=== PATIENT | male | born 2000 | race Caucasian/White ===

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

== ENCOUNTER 2021-09-30 17:49 | Emergency (ER) | payer OTHER ==
[~2021-09-30] VITALS: Ht 172.7 cm; Wt 70.0 kg
[~2021-09-30 17:49] MED LIST: KEFLEX500 MG PO
[2021-09-30] MEDS ORDERED: DOXYCYC MONO100 M2 PO (18:54)
[2021-09-30 19:16] VITALS: BP 130/64
== END 2021-09-30 19:16 | disposition home or self-care (01) | DRG 605 ==
LOC: ED 17:49
PROC: 0HQ0XZZ Repair Scalp Skin, External Approach (ICD-10-PCS; principal; 2021-09-30)
DX: S01.01XA Laceration without foreign body of scalp, initial encounter (principal); W26.8XXA Contact with other sharp object(s), not elsewhere classified, initial encounter; Y92.009 Unspecified place in unspecified non-institutional (private) residence as the place of occurrence of the external cause

== ENCOUNTER 2021-10-07 12:36 | Emergency (ER) | payer OTHER ==
[~2021-10-07] VITALS: Ht 172.7 cm; Wt 61.3 kg
[~2021-10-07 12:36] MED LIST changes: +DOXYCYC MONO100 M2 PO
[2021-10-07 14:05] VITALS: BP 130/66
== END 2021-10-07 14:05 | disposition home or self-care (01) | DRG 950 ==
LOC: ED 12:36
DX: S01.01XD Laceration without foreign body of scalp, subsequent encounter (principal); X58.XXXD Exposure to other specified factors, subsequent encounter

== ENCOUNTER 2022-10-03 10:21 | Emergency (ER) | payer OTHER ==
[~2022-10-03] VITALS: Ht 172.7 cm; Wt 68.0 kg
[2022-10-03 10:27] VITALS: BP 135/81
[2022-10-03 10:30] VITALS: BP 110/71
[2022-10-03] MEDS ORDERED: DOXY-CAPS100 MG PO (10:40)
[2022-10-03] MEDS ORDERED: ZOFRAN4 MG/TAB PO (10:40)
[2022-10-03 10:45] VITALS: BP 118/77
[2022-10-03 10:49] VITALS: BP 110/71
== END 2022-10-03 10:54 | disposition home or self-care (01) | DRG 153 ==
LOC: ED 10:21
DX: J06.9 Acute upper respiratory infection, unspecified (principal); Z20.822 Contact with and (suspected) exposure to COVID-19

== ENCOUNTER 2022-12-29 22:08 | Emergency (ER) | payer BC, OTHER ==
[~2022-12-29] VITALS: Ht 172.7 cm; Wt 65.0 kg
[~2022-12-29 22:08] MED LIST changes: +DOXY-CAPS100 MG PO; +ZOFRAN4 MG/TAB PO
[2022-12-30 00:22] LABS: BASO% 0.7 % (0-3); EOS% 2.8 % (0-8); HEMATOCRIT 43.6 % (39.0-50.0); HEMOGLOBIN 14.5 g/dl (14.0-18.0); IMMATURE GRANULOCYTES 0.5 % (0.0-5.0); LYMPH% 7.3 % (15-41); MEAN CELL VOLUME 89.9 fL CALC (80.0-100.0); MEAN CORPUSCULAR HGB 29.9 pG CALC (26.0-32.0); MEAN CORPUSCULAR HGB CONC 33.3 g/dL CAL (32.0-36.0); MONO% 11.9 % (2-13); NEUT# 4.63 thou/uL (1.82-7.42); NEUT% 76.8 % (42-76); RED BLOOD COUNT 4.85 mill/uL (4.70-6.10); RED CELL DISTRI WIDTH 12.1 % (11.5-15.5)
[2022-12-30 00:36] LABS: ALBUMIN 4.7 g/dL (3.2-5.0); ALKALINE PHOSPHATASE 60 u/l (38-126); ANION GAP 11 (6-22 (CALC)); BILIRUBIN, TOTAL 0.1 mg/dL (0.2-1.3); BUN 9 mg/dL (9-20); BUN/CREATININE RATIO 9 (12-20 (CALC)); CARBON DIOXIDE 27 mmol/l (22-30); CHLORIDE 106 mmol/l (95-108); GFR FOR AFR.AMER. > 60 ML/MIN (>=60 (CALC)); GFR OTHER RACES > 60 ML/MIN (>=60 (CALC)); POTASSIUM 3.9 mmol/l (3.5-5.1); SGOT/AST 46 u/l (17-59); SODIUM 141 mmol/l (137-146); TOTAL PROTEIN 7.4 g/dL (6.3-8.2)
[2022-12-30] MEDS ORDERED: PAXLOVID PO (00:59)
[2022-12-30 02:25] VITALS: BP 108/65
== END 2022-12-30 01:20 | disposition home or self-care (01) | DRG 179 ==
LOC: ED 22:08
PROVIDERS: Emergency Medicine
DX: U07.1 COVID-19 (principal)